=== PATIENT | male | born 1970 | race Caucasian/White ===

== ENCOUNTER 2024-11-10 09:46 | Emergency (ER) | payer BC, SELFPAY ==
[2024-11-10 10:07] VITALS: BMI 31.6
[2024-11-10 10:08] VITALS: BP 154/99; PULSE 78; RESP 17; TEMP 37; O2SAT 97
--- NOTE | 2024-11-10 10:14 | XR_ITS ---
Examination: CT abdomen with intravenous contrast CT pelvis with intravenous contrast 2-D coronal reconstructions 2-D sagittal reconstructions Date and time of exam:November 10, 2024, 1444 hours INDICATIONS: Right-sided abdominal flank pain difficulty urinating today. CTDI: vol (mGy) 9.47 DLP: (mGycm) 600 Technique: Multiple axial sections of the abdomen and pelvis have been obtained. 64 slice high-resolution scanner used. 3 mm axial sections have been obtained, post intravenous injection 60 cc [id number] 2-D sagittal, coronal reconstructions obtained. Low dose protocols were performed. One or more of the following dose reduction techniques were used; automated exposure control, adjustment of the mA and/or KV according to patient size, use of iterative reconstruction technique. Findings: No focal liver or splenic lesions No gallstones No pancreatic or adrenal mass. No renal or ureteral calculi, minimal perinephric stranding, nonspecific finding No hydronephrosis Normal appendix Aorta normal size Intact urinary bladder Normal seminal vesicles No prostatomegaly Mild osteopenia IMPRESSION: No renal or ureteral calculi, no hydronephrosis, no findings of pyelonephritis Normal appendix No bladder mass or bladder calculi Negative for prostatomegaly
--- NOTE | 2024-11-10 10:15 | EKG_ITS ---
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
[2024-11-10 10:43] LABS: Basophils # (Auto) 0.0 Thou/mm3 (0.0-0.2); Basophils % (Auto) 1 % (0-2.5); Eosinophils # (Auto) 0.0 Thou/mm3 (0.0-0.5); Eosinophils % (Auto) 1 % (0-10); Hematocrit 43.9 % (41.0-53.0); Hemoglobin 15.1 g/dL (13.5-16.0); Immature Granulocytes Auto 0.02 Thou/mm3 (0.00-0.00); Lymphocytes # (Auto) 1.6 Thou/mm3 (1.0-4.8); Lymphocytes % (Auto) 27 % (10-50); Mean Corpuscular HGB Conc 34.4 g/dl (31.0-37.0); Mean Corpuscular Hemoglobin 31.0 pg (25.0-35.0); Mean Corpuscular Volume 90 fL (80-100); Monocytes # (Auto) 0.7 Thou/mm3 (0.0-0.8); Monocytes % (Auto) 11 % (0-12); Neutrophils # (Auto) 3.5 Thou/mm3 (1.8-7.7); Neutrophils % (Auto) 61 % (37-80); Nucleated Red Blood Cell # 0.00 Thou/mm3 (0.00-0.00); Nucleated Red Blood Cell % 0 /100 WBC (0); Platelet Count 336 Thou/mm3 (140-440); RDW Standard Deviation 45.6 fL (35.1-43.9); Red Blood Count 4.87 Miln/mm3 (4.50-5.90); White Blood Count 5.8 Thou/mm3 (3.8-10.6)
[2024-11-10 11:03] LABS: Alanine Aminotransferase 57 U/L (10-49); Albumin, Serum 4.5 gm/dL (3.5-5.0); Albumin/Globulin Ratio 1.7 (1.2-2.2); Alkaline Phosphatase 57 U/L (46-116); Anion Gap 8 (7-16); Aspartate Amino Transferase 32 U/L (0-34); BUN/Creatinine Ratio 12 Ratio (12-20); Bilirubin,Total 0.5 mg/dL (0.3-1.2); Blood Urea Nitrogen 13 mg/dL (9-23); Calcium 10.0 mg/dL (8.3-10.6); Calcium (Corrected) 10.0 mg/dL (8.5-10.1); Carbon Dioxide 29.5 mMol/L (20.0-31.0); Chloride 101 mMol/L (98-107); Creatinine (Component) 1.1 mg/dL (0.6-1.3); Estimated Creatinine Clearance 93.1 mL/min (>60); Globulin 2.7 gm/dL (2.3-3.5); Glucose 102 mg/dL (74-106); Lipase 32 U/L (12-53); Osmolality,Calculated 275 (275-295); Potassium 4.4 mMol/L (3.4-5.1); Sodium 138 mMol/L (136-145); Total Protein 7.2 gm/dL (5.7-8.2); Troponin I < 0.002 ng/mL (0.0-0.045); eGFR > 60 See Note
[2024-11-10 11:49] LABS: Collection Type, Urine Clean Catch; RBC,Urine 0 /hpf (0-3); Squamous Epithelial Cell,Urine 0 /hpf (0-5)
[2024-11-10 11:53] LABS: Bilirubin,Urine Negative (Negative); Blood,Urine Negative (Negative); Clarity,Urine Clear (Clear/Hazy); Color,Urine Colorless (Lt Yel-Yel); Culture Indicated,Urine Not Indicated; Glucose, Urine Negative (Negative); Ketones,Urine Negative (Negative); Leukocyte Esterase,Urine Negative (Negative); Nitrite,Urine Negative (Negative); PH,Urine 6.0 (5.0-7.0); Protein,Urine Negative (Neg - Trace); Specific Gravity,Urine 1.006 (1.001-1.035); Urobilinogen,Urine Negative mg/dL (0.0-1.0); WBC,Urine < 1 /hpf (0-5)
[2024-11-10 14:00] VITALS: BP 144/68; PULSE 78; RESP 17; TEMP 36.6; O2SAT 98
--- NOTE | 2024-11-10 15:07 | EDNOTE_ITS ---
ED Male Genitalurinary RME/HPI General Chief complaint: Urogenital-Male Stated complaint: Right side back pain/flank pain Time Seen by Provider: 11/10/24 10:00 Source: patient Arrival date/time: 11/10/24 09:46 Mode of arrival: ambulatory Limitations: no limitations RME / HPI RME / HPI Narrative: Patient presents with flank pain right side for the last few days. Denies f,c,n,v,sob, cough, runny nose, abd pain, recent travel or sick contacts. No trauma. No dysuria or hematuria. Related Data Allergies Allergy/AdvReac Type Severity Reaction Status Date / Time No Known Drug Allergies Allergy Verified 11/10/24 09:52 Review of Systems Review of Systems Systems Reviewed: All systems reviewed, normal except as documented Past Medical History Past Medical History CARDIAC: Negative Cardiac Disorders RESPIRATORY: Negative Asthma GENITOURINARY: Negative Renal Disease ENDOCRINE: Negative Diabetes Mellitus Type 2 HEMATOLOGIC: Negative Sickle Cell Disease Social History SMOKING STATUS: Never smoker ED Exam General Limitations: Present no limitations Course Quality Measures none Orders Category Date Time Status CT Screening NOW Care 11/10/24 10:14 Completed EKG (ED ONLY) *Do not use* NOW Care 11/10/24 10:[address] abdomen pelvis w con Stat Exams 11/10/24 10:14 Completed EKG (ED Only) Stat Exams 11/10/24 10:15 Draft CBC Stat Lab 11/10/24 10:38 Completed CMP [Comprehensive Metabolic Panel] Stat Lab 11/10/24 10:38 Completed Lipase Stat Lab 11/10/24 10:38 Completed Troponin I Stat Lab 11/10/24 10:38 Completed UA, C/S IF [Urinalysis, C/S if Indicated] Stat Lab 11/10/24 11:45 Completed Ketorolac Inj [Toradol Inj] Med 11/10/24 10:15 Discontinued 15 mg IM X1 ONE Vital Signs Vital signs: Vital Signs Temperature 98.6 F 11/10/24 10:08 Pulse Rate 78 11/10/24 10:08 Respiratory Rate 17 11/10/24 10:08 Blood Pressure 154/99 H 11/10/24 10:08 Pulse Oximetry (%) 97 11/10/24 10:08 Oxygen Delivery Method Room Air 11/10/24 10:08 Urogenital - Male MDM Narrative MDM Narrative:: Patient is a 54-year-old male with no significant past medical history is in Emergency Department concerns for right flank pain. Vital signs and exam as listed. Concern for urinary tract infection, pyelonephritis, kidney stone among others. Patient abdomen soft and nontender, no rebound or guarding. Patient not septic. Ordered labs CT abdomen pelvis offered medication for symptom relief. Labs without acute hematologic or significant metabolic abnormality. No significant transaminitis, troponin not elevated, lipase not elevated, urinalysis without evidence of infection. CT abdomen pelvis without any acute abnormalities. EKG performed today at 1019, normal sinus rhythm, normal intervals, nonspecific T wave changes, no critical care. On reevaluation patient hemodynamically stable, no distress will discharge home close precautions follow-up with primary care doctor Patient data External records reviewed:: None Clinical information provided by:: patient Social determinants that could affect healthcare access:: none Patient has the following chronic illnesses:: None How is presenting disease/condition affected by chronic disease/condition?: no chronic disease Evaluation data The following diagnostics were reviewed and interpreted by me:: lab results, radiology exam(s) and EKG tracing(s) Lab and/or radiology exams considered but not ordered:: None Interpretation Summary: See [facility] [place] Medications / Prescriptions Medications or Prescriptions considered but not ordered:: None Medication administrations:: Medication Administration History Discontinued Medications Ketorolac Tromethamine (Ketorolac Inj 30 Mg/Ml Vial) 15 mg IM X1 ONE Stop: 11/10/24 10:16 Last Admin: 11/10/24 11:03 Dose: Not Given Documented By: Non-Admin Reason: Patient Refused See above Consultations Consultation(s) initiated? (list below): No Diagnosis Urogenital Male Differential Diagnosis: other Most likely diagnosis given after review of the tests above:: See [facility] [place] Admission Indicated Admission indicated?: not indicated Admission Request Was there a request for admission?: No Disposition Plan Disposition Plan: Discharge Discharge Attestation Discharge Attestation: The patient and all family members were given an opportunity to ask questions and understood the discharge instructions. Discharge instructions specifically effects, indications for sooner follow up or return to the emergency department, and the expected course of current diagnosis. Patient condition: Stable Discharge Plan Plan Patient Disposition: HOME (Self Care) Prescriptions/Referrals Referrals: No Primary/Family,Physician [Primary Care Provider] - In 1 week Problem List Clinical Impression: Acute flank pain Patient/Caregiver Discharge Instructions Education Materials: ED Flank Pain, Uncertain Cause Additional Instructions: Please follow-up with your primary care doctor within the next 1 to 2 days. Your labs EKG and CT abdomen pelvis and identify any acute abnormalities. Please return immediately for worsening symptoms or new symptoms concern. Print Language: Barbadian Stand Alone Forms: dINK Award Info., Patient Portal Info Letter
== END 2024-11-10 16:35 | disposition home or self-care (01) ==
PROVIDERS: Emergency Provider Emergency Medicine
DX: R10.9 Unspecified abdominal pain (principal); R94.31 Abnormal electrocardiogram [ECG] [EKG]
CPT/HCPCS: 36415; 74177; 80053; 81001; 83690; 84484; 85025; 93005; 99284; A4649; Q9967